=== PATIENT | female | born 1985 | race American Indian/Alaskan Native ===

== ENCOUNTER 2019-03-27 05:54 | Emergency (ER) | payer OTHER ==
[2019-03-27] MEDS ORDERED: KETOROLAC 30 MG/1 ML INJ IM ONE (06:11)
[2019-03-27 06:14] VITALS: BP 118/70
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
== END 2019-03-27 08:19 | disposition home or self-care (01) ==
LOC: ED 05:54
DX: S16.1XXA Strain of muscle, fascia and tendon at neck level, initial encounter (principal); S39.012A Strain of muscle, fascia and tendon of lower back, initial encounter; Z79.899 Other long term (current) drug therapy; V49.49XA Driver injured in collision with other motor vehicles in traffic accident, initial encounter; Y93.89 Activity, other specified; Y92.410 Unspecified street and highway as the place of occurrence of the external cause; Y99.8 Other external cause status
CPT/HCPCS: 72040; 72100; 96372; 99283; J1885

== ENCOUNTER 2019-04-01 17:13 | Emergency (ER) | payer OTHER ==
[2019-04-01 17:34] VITALS: BP 128/76
[2019-04-01] MEDS ORDERED: KETOROLAC 30 MG/1 ML INJ IM ONE (20:11)
[2019-04-01] MEDS ORDERED: oxyCODONE /ACETAMINOPHEN 5-325MG TAB PO ONE (20:11)
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
== END 2019-04-01 21:00 | disposition home or self-care (01) ==
LOC: ED 17:13
DX: S16.1XXA Strain of muscle, fascia and tendon at neck level, initial encounter (principal); S39.012A Strain of muscle, fascia and tendon of lower back, initial encounter; V49.49XA Driver injured in collision with other motor vehicles in traffic accident, initial encounter; Y93.89 Activity, other specified; Y92.89 Other specified places as the place of occurrence of the external cause; Y99.8 Other external cause status
CPT/HCPCS: 96372; 99282; J1885